=== PATIENT | female | born 1960 | race Caucasian/White ===

== ENCOUNTER 2016-12-04 16:06 | Observation (INO) | payer OTHER ==
[~2016-12-04] VITALS: Ht 160 cm; Wt 93.8 kg
[2016-12-04 16:22] VITALS: BP 155/91; PULSE 91; RESP 18; O2SAT 98
[2016-12-04 17:35] LABS: BASOPHILS % (AUTO) 0.3 % (0-3); EOSINOPHILS % (AUTO) 2.3 % (0-5); MONOCYTES % (AUTO) 5.8 % (4-12); Mean Corpuscular Hemoglobin 27.5 pg (27.0-35.0); Mean Corpuscular Volume 83.2 fL (81-100); NEUTROPHILS % (AUTO) 53.8 % (40-74); Platelet Count 295 bil/L (150-400)
--- NOTE | 2016-12-04 17:38 | ED.REPORT ---
HPI-General Illness Date of Service Dec 04, 2016 ED Provider: Nehemiah Parker MD Pt is a 56 year old female with a history of HTN and a family history of cardiac disease who presents to the ED complaining of intermittent SOB onset today. She reports that she experienced sharp, non-radiating pain under her shoulder blade on the left side yesterday night associated with this. Pt rates her shoulder blade pain as a 10/10, stating that it lasted approximately 2 minutes. No notable alleviating or exacerbating factors. She denies chest pressure, current SOB, abdominal pain, focal weakness, hematuria, hematochezia, vision change, fever, chills, rash, bruising, diarrhea, constipation, and extremity pain. Nursing Notes Stated Complaint: SOB, UPPER BACK PAIN Chief Complaint: General Complaint Nursing Notes Reviewed: Yes Allergies: Coded Allergies: No Known Allergies (Verified , 12/04/16) Scheduled Bupropion ER (Bupropion ER) 300 Mg Tab.er.24h 300 MG PO DAILY Bupropion ER (Bupropion ER) 150 Mg Tablet.er 150 MG PO DAILY Escitalopram Oxalate (Escitalopram Oxalate) 10 Mg Tablet 10 MG PO DAILY Hydrochlorothiazide (Hydrochlorothiazide) 25 Mg Tablet 25 MG PO DAILY Rabeprazole DR (Aciphex) 20 Mg Tablet 20 MG PO DAILY Scheduled PRN Ibuprofen (Ibuprofen) 400 Mg Tablet 400 MG PO QID PRN PRN For Pain diphenhydrAMINE HCl (Benadryl) 25 Mg Capsule 12.5 MG PO Q4 PRN PRN For Itching General Time Seen by MD: 16:54 Chief Complaint Other (Shortness of breath) Hx Obtained From: Patient Arrived By: Walk-in Sudden in Onset?: No Onset Occurred: 5 - 8 hours ago Symptom Duration: Since onset Severity: Current: No pain currently Severity: Maximum: No pain Recent Healthcare: No recent doctor visit, No recent hospitalization Similar Sx Previous: No Past Medical History Past Medical History Uterine fibroid, hypermonorrhea, with secondary anemia s/p surgery (2004) Pinched nerve Reports: Hypertension, Denies: Diabetes mellitus Past Surgical History Total abdominal hysterectomy Bilateral salpingo-oophorectomy Reports: (2x) Family History Cardiac disease Mother - of cancer Sister - of stroke Father - from coronary artery disease and complications from triple bypass Reports: CAD < 40 years old, Stroke Smoking History Unknown if Ever Smoker Social History Alcohol Use: "Social" Drug Use: THC Other Social History: Good social support, Ambulatory Status Independent Review of Systems Full Review of Systems Constitutional: Denies: Chills, Fever Eyes: Denies: Blurred bilateral, Visual loss bilateral Respiratory: Reports: Shortness of breath Cardiovascular: Denies: Chest pain GI: Denies: Constipation, Diarrhea, Hematochezia Female: Denies: Hematuria Musculoskeletal: Reports: Back pain, Denies: Extremity pain Hematologic: Denies Bruising Skin: Denies Rash Neurologic: Denies: Focal weakness Complete sys rev & neg: except as marked. Physical Exam Nursing note and vitals reviewed. Constitutional: Well-developed, well-nourished. Not diaphoretic. Head: Normocephalic and atraumatic. Mouth/Throat: Oropharynx is clear and moist. No oropharyngeal exudate. Eyes: EOM are normal. Pupils are equal, round, and reactive to light. Neck: Supple, no tracheal deviation. Cardiovascular: Normal rate, regular rhythm. Equal and intact distal pulses throughout. Pulmonary/Chest: Effort normal and breath sounds normal. No respiratory distress. Abdominal: Soft. No distension. There is no tenderness, rebound, or guarding. Bowel sounds present. Musculoskeletal: Range of motion grossly intact, moving all extremities. No edema or tenderness appreciated. Neurological: AOx3. Grossly nonfocal exam. Strength and sensation intact and equal to bilateral upper and lower extremities. Skin: Warm and dry, no rashes or pallor appreciated. Psychiatric: Appropriate mood and affect. Behavior appears normal. Vital Signs Vital Signs Date Time Temp Pulse Resp B/P Pulse Ox O2 Delivery O2 Flow Rate FiO2 12/04/16 21:01 80 20 151/86 98 Room Air 12/04/16 16:22 36.9 91 18 155/91 98 Room Air Initial VS: Reviewed Interpretation & Diagnostics Lab Results Interpretation Result Diagram: 12/04/16 1705 12/04/16 1705 Test 12/04/16 17:05 White Blood Count 10.7th/mm3 (3.8-10.1) Red Blood Count 4.94mil/mm3 (3.90-5.20) Hemoglobin 13.6g/dL (12.0-15.6) Hematocrit 41.1% (35.0-46.0) Mean Corpuscular Volume 83.2fL (81-100) Mean Corpuscular Hemoglobin 27.5pg (27.0-35.0) Mean Corpuscular Hemoglobin Concent 33.1% (32.0-37.0) Red Cell Distribution Width 13.7% (12.3-15.4) Platelet Count 295bil/L (150-400) Neutrophils (%) (Auto) 53.8% (40-74) Lymphocytes (%) (Auto) 37.6% (14-46) Monocytes (%) (Auto) 5.8% (4-12) Eosinophils (%) (Auto) 2.3% (0-5) Basophils (%) (Auto) 0.3% (0-3) D-Dimer < 0.50mg/L FEU (<0.50) Sodium Level 134mEq/L (134-144) Potassium Level 3.4mEq/L (3.5-5.2) Chloride Level 94mEq/L (97-108) Carbon Dioxide Level 28mmol/L (18-29) Blood Urea Nitrogen 11mg/dL (6-24) Creatinine 0.66mg/dL (0.57-1.00) Estimat Glomerular Filtration Rate 134mL/min (>59) Glucose Level 139mg/dL (60-99) Calcium Level 8.8mg/dL (8.5-10.1) Magnesium Level 1.9mg/dL (1.6-2.6) Total Bilirubin 0.3mg/dL (0.0-1.2) Aspartate Amino Transf (AST/SGOT) 20U/L (0-50) Alanine Aminotransferase (ALT/SGPT) 19U/L (0-32) Alkaline Phosphatase 101U/L (25-150) Troponin T 0.010ug/L (0.0-0.011) Total Protein 7.0g/dL (6.4-8.4) Albumin 4.1g/dL (3.4-5.0) Lab Results Interpretation: CMP - grossly WNL Potassium - 3.4 Glucose - 139 Troponin - negative WBC - 10.7 No left shift ECG Interpretation ECG Interpretation: Sinus rhythm with a rate of 82 Time: 17:41 Interpreted by: ED physician X-Ray Chest Interpretation Chest Xray Interpretation: IMPRESSION: No acute cardiopulmonary disease. Dictated by: Bebo Crabtree M.D. on 12/04/2016 at 18:02 View: Portable, 1 view Interpretation / Wet Read by: Interpret - Radiologist Re-Eval/Medical Decision Med Decision/Clinical Course In summary, 56-year-old female with a history of hypertension and a strong family history of early cardiac disease presenting to the ED for evaluation of left-sided scapular/chest pain as well as dyspnea today. Differential includes musculoskeletal pain, ACS, pneumonia, PE, etc. She has somewhat of a concerning story and plenty of risk factors for ACS including hypertension, obesity, and a strong family history of early cardiac disease; I'm concerned that she may have an atypical presentation of ACS given her sex and age. She is not having any pleuritic symptoms, O2 sats within normal limits, no tachycardia; low risk by Well's. No evidence of pneumonia on chest x-ray. Given the above, as well as the patient's HEART score, feel that admission for stress test is reasonable at this time. Patient agreeable to the plan as stated, no further questions. Source of Hx: Old records Time of Eval: 21:20 Re-Evaluation/Progress Note: Discussed risk of cardiac disease at her age and with her family history. Informed pt of reassuring chest x-ray and labs. Discussed need for stress test and what a stress test entails. Informed pt of need for admission for stress test and observation. Pt understands and agrees with plan for admission. All questions addressed. Consultation : Referral / Consult Name: Denia Yang DO Consulted With: Hospitalist Call Returned at: 22:30 Assistant Professor Of Psychology: Will see patient, Agrees with eval, Agrees with plan, Accepts admit Note: Discussed pt's case. Will admit for observation. Counseled Regarding: Diagnosis, Lab results, Need for admission Discharge & Departure Primary Impression: Chest pain Chest pain type: unspecified Qualified Code: R07.9 - Chest pain, unspecified Additional Impression: Dyspnea Dyspnea type: unspecified Qualified Code: R06.00 - Dyspnea, unspecified Disposition: ADMITTED TO HOSPITAL Discharge Condition All VS Reviewed: Yes Condition: Stable Referrals: Keesha Romo MD Scribe Attestation Portions of this note were transcribed by Carol Francis. I, Dr. Parker personally performed the history, physical exam and medical decision-making; I reviewed and confirmed the accuracy of the information in the transcribed note. Signed by: Kristal Rodriguez, 12/04/16. copies to: Keesha Romo MD, William B MD Dec 04, 2016 17:38 Carol Raygoza Dec 04, 2016 17:55
[2016-12-04 17:51] LABS: TROPONIN T 0.01 ug/L (0.0-0.011)
[2016-12-04 18:02] LABS: Magnesium 1.9 mg/dL (1.6-2.6)
--- NOTE | 2016-12-04 18:04 | DRSVH ---
PROCEDURE: X-RAY CHEST ONE VIEW, PORTABLE ([id number]) INDICATIONS: 56 year-old female with shortness of breath. TECHNIQUE: One view of the chest was acquired. COMPARISON: None. FINDINGS: Surgical changes and devices: None. Lungs and pleura: No pleural effusions or pneumothorax. Lungs are clear. Mediastinum: Mediastinal contours appear normal. Heart size is normal. Bones and chest wall: No suspicious bony lesions. Overlying soft tissues appear unremarkable. IMPRESSION: No acute cardiopulmonary disease. Dictated by: Bebo Crabtree M.D. on 12/04/2016 at 18:02 Approved by: Bebo Crabtree M.D. on 12/04/2016 at 18:02
[2016-12-04 21:01] VITALS: BP 151/86; PULSE 80; RESP 20; O2SAT 98
[2016-12-04 22:23] VITALS: BP 147/71; PULSE 82; RESP 19; O2SAT 98
[2016-12-04] MEDS ORDERED: Alum-Mag Hydrox-Simeth 30 mL Suspension PO PRN (23:10)
[2016-12-04] MEDS ORDERED: Polyethylene Glycol (PEG) 17 Gm Powder PO PRN (23:10)
[2016-12-04] MEDS ORDERED: Ondansetron 2 mg/mL 2 mL Inj IVPUSH PRN (23:10)
[2016-12-04 23:22] VITALS: BP 149/83; PULSE 79; RESP 18; O2SAT 94
--- NOTE | 2016-12-04 23:49 | PCM.HPMED ---
Subjective Date of Service Dec 04, 2016 Primary Provider: Admitting Physician: Denia Yang DO Primary Care Physician: Jorge Attending Physician: Denia Yang DO Chief Complaint: Shortness of Breath, Chest Pain History of Present Illness: Patient is a 56 y/o female with PMHx of HTN and a strong family history of heart disease who presents after intermittent episodes of Shortness of Breath that last 5 minutes at a time. Patient reports to have been watching television at around 11:00 this morning and experienced shortness of breath and palpitations. Patient reports that she had another episode an hour later with SOB and palpitations, again lasting roughly five minutes. The previous night, patient had sudden sharp L scapular pain that awoke her from sleep. Pain lasted about two minutes and did not radiate. She did not take anything to relieve the pain. Pain was a 10/10. Associated symptoms include headache and nausea. Denies ABD pain, vomiting, diarrhea, fever/chills, or urinary symptoms. Patient does report a dry cough that has been present for about two weeks, but she denies any recent sick contacts. Patient denies any recent travel, TB exposure, or recent changes to medications. She has been having episodes of hot flashes for the past month that occur a couple times a week. Her family's cardiac history includes an IA in her mother at age 54, and her sister who from a CVA. In the ED, patient was given ASA and Tylenol. Review of Systems: ROS reviewed and otherwise negative unless noted above. 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 Head: normocephalic and atraumatic Eyes: pupils equal round and reactive to light, no scleral icterus Heart: regular rate and rhythm, no murmur, rubs, or gallops, trace peripheral edema bilaterally Lungs: clear to auscultation, no wheeze, rales, or rhonchi, no chest wall tenderness ABD: soft, nontender, bowel sounds present throughout Musculoskeletal: moves all four extremities appropriately. 5/5 clubhouse attendant strength, 5 /5 strength in bilateral UE. moderate tenderness to palpation to posterior left calf, just distal to knee. Skin: warm, dry, no rash Neuro: CN II-XII intact. no focal deficits. Psych: appropriate mood and affect. Lab and Diagnostics Labs Item Value Date Time Red Blood Count 4.94 mil/mm3 12/04/161704 Mean Corpuscular Volume 83.2 fL 12/04/161704 Mean Corpuscular Hemoglobin 27.5 pg 12/04/161704 Mean Corpuscular Hemoglobin Concent 33.1 % 12/04/161704 Red Cell Distribution Width 13.7 % 12/04/161704 Neutrophils (%) (Auto) 53.8 % 12/04/161704 Lymphocytes (%) (Auto) 37.6 % 12/04/161704 Eosinophils (%) (Auto) 2.3 % 12/04/161704 Monocytes (%) (Auto) 5.8 % 12/04/161704 Basophils (%) (Auto) 0.3 % 12/04/161704 Estimat Glomerular Filtration Rate 134 mL/min 12/04/161704 Calcium Level 8.8 mg/dL 12/04/161704 Magnesium Level 1.9 mg/dL 12/04/161704 Total Bilirubin 0.3 mg/dL 12/04/161704 Aspartate Amino Transf (AST/SGOT) 20 U/L 12/04/161704 Alanine Aminotransferase (ALT/SGPT) 19 U/L 12/04/161704 Alkaline Phosphatase 101 U/L 12/04/161704 Troponin T 0.010 ug/L 12/04/161704 Total Protein 7.0 g/dL 12/04/161704 Albumin 4.1 g/dL 12/04/161704 D-Dimer < 0.50 mg/L FEU 12/04/161704 Result Diagram: 12/04/16170417 1705 X-Rays, CTs and MRIs PROCEDURE: X-RAY CHEST ONE VIEW, PORTABLE IMPRESSION: No acute cardiopulmonary disease. Dictated by: Bebo Crabtree M.D. on 12/04/2016 at 18:02 12-lead ECG Sinus HR 82 Assessment & Plan Patient is a 56 y/o female with PMHx of HTN and a strong family history of heart disease who presents after intermittent episodes of Shortness of Breath that last 5 minutes at a time. - Acute Unstable Angina, POA, Stable, Resolved - patient with CP that woke her from sleep, intermittent episodes of SOB at rest with palpitations and a strong family history of CAD - Although patient ASHLY Risk for UA/NSTEMI is 1, the patient's strong family history and mother with an ACS event at 54 places this patient at an increased risk for an coronary event and requires further diagnostic evaluation. - Consult cardiology in AM, plan for stress test in AM - NPO after midnight - Morphine PRN - Nitro PRN - ASA 235mg given in ED - History of Hypertension, Chronic, Stable - Continue home dose of HCTZ Patient is FULL CODE Due to the nature of the chest pain and need for further diagnostic evaluation, patient is admitted under the observation status and estimated time of discharge is less than two midnights. Pain Evaluation: Adequate Pain Control GI Prophylaxis: H2 bean VTE Prophylaxis Indicated: Meets Criteria for Anticoag Therapy VTE Prophylaxis: Sub-Q Heparin (Unfractionated) Resuscitation Status: CPR: Attempt Resuscitation Attending Statement The patient was seen and examined together with house staff on 12/04/2016 and I agree with the history, exam and plan as outlined in the note above. Dewayne Rand DO Dec 04, 2016 23:49 Denia Yang DO Dec 05, 2016 02:41
[2016-12-05] MEDS ORDERED: IBUP400T22 PO
[2016-12-05] MEDS ORDERED: HYDR25TA4 PO
[2016-12-05] MEDS ORDERED: RABE20TA9 PO
[2016-12-05] MEDS ORDERED: BUPR150T12 PO
[2016-12-05] MEDS ORDERED: BUPR300T52 PO
[2016-12-05] MEDS ORDERED: ESCI10TA52 PO
[2016-12-05] MEDS ORDERED: DIPH25CA6 PO
[2016-12-05 00:03] VITALS: BP 149/83; PULSE 79; RESP 18; O2SAT 94
[2016-12-05] MEDS ORDERED: diphenhydrAMINE 25 mg Capsule PO PRN (00:25)
[2016-12-05] MEDS: Heparin 5,000 Unit/mL Inj SUBQ SCH ×3 (00:36→16:37)
--- NOTE | 2016-12-05 02:46 | NUR ---
admit note Pt is admitted to room 3007 from ED around 23:10 for chest pain and episode of SOB today. Pt is A&Ox4. denies chest pain or SOB. Reports tolerable 2/10 headache after getting tylenol in ED. independent in the room; gait steady. Tele SR in the 80s per shelter monitor. tolerated heart healthy diet w/o N/V. NPO since midnight for stress test today. Pt is oriented to room and plan of care; she verbalized understanding. Addendum: 12/05/16 at 0636 by VETO ALDANA RN slept intermittently after getting Temazepam this shift. No c/o chest pain or discomfort. NPO since midnight
[2016-12-05 05:15] VITALS: BP 129/84; PULSE 73; RESP 18; O2SAT 96
[2016-12-05 05:22] VITALS: PULSE 89
[2016-12-05 06:24] LABS: Mean Corpuscular Volume 83.9 fL (81-100)
[2016-12-05] MEDS ORDERED: Pantoprazole 40 mg ER24 Tablet PO SCH (06:30)
[2016-12-05 08:00] VITALS: PULSE 80
[2016-12-05] MEDS ORDERED: 0.9% Sodium Chloride 250 ML ONE (08:11)
[2016-12-05] MEDS ORDERED: buPROPion XL 150 mg ER24 Tablet PO SCH (08:30)
[2016-12-05] MEDS ORDERED: buPROPion XL 300 mg ER24 Tablet PO SCH (08:30)
[2016-12-05] MEDS ORDERED: Famotidine Inj 20 MG in IV Premix 1 EACH IV SCH (08:30)
[2016-12-05 09:41] VITALS: BP 145/86; PULSE 72; RESP 18; O2SAT 96
--- NOTE | 2016-12-05 13:26 | NUR ---
Pt Off Floor 1330 Pt taken to Nuc med in w/c with chart. Pt A&Ox4, medicated with Tylenol for shoulder pain, pt stated she moved self in bed at home and 'strained' shoulder. VS stable. Addendum: 12/05/16 at 1653 by SHAHIDA CACERES RN 1555 Pt back on floor. Tele placed back on, confirmed placement with traffic monitor specialist. BP 175/105, Dr. Hi Hall notified.
--- NOTE | 2016-12-05 15:24 | NUR ---
Social Work: Multidisciplinary Rounds / Initial Assessment Data: See initial assessment. Patient is a 56 year old female who was admitted on 12/04/16 for chest pain and dyspnea per H&P. Patient's insurance is [employer] Plan and no PCP is listed at this time. EMR reviewed. DAVID met with patient to discuss discharge planning. DAVID role explained. Patient reports that she lives with her spouse, sister, and two children in [place]. Patient considers her family to be her main source of support. Patient denies having a DPOA or AD at this time. SW has provided patient with AD resources per her request. Patient confirms that she drives via [place]. Patient denies a hx of home health services or SNF. Patient denies having retirement care insurance or VA benefits. Upon discharge, patient states that she will be transported home by her spouse. SW provided patient with a discharge planning checklist booklet and encouraged to call with any questions or concerns. Phone number provided. Patient was discussed in morning rounds. No concerns were noted by MD or staff. DAVID will continue to follow. Assessment: Patient will likely discharge home when medically stable. Plan: Patient will discharge home when medically stable. Transportation will be provided by spouse. SW will continue to follow for needs. STEVIE Bernard Addendum: 12/05/16 at 1532 by CAIN STEEN Amended: Links added.
[2016-12-05 15:57] VITALS: BP 175/105; PULSE 88; RESP 18; O2SAT 97
[2016-12-05] MEDS ORDERED: LIP40 PO (17:36)
--- NOTE | 2016-12-05 17:36 | PCM.DIMED ---
Discharge Instructions Date of Service Dec 05, 2016 Dates of Hospitalization Dec 04, 2016 at 22:06 Discharge Diagnosis Discharge Diagnosis 1. Chest pain, resolved. Normal stress test. 2. Hypertension, stable. 3. Hyperlipidemia, new. Diet Discharge Diet: Low fat, Low Sodium Activity Discharge Activity: No restrictions Call your provider Call your provider for: Shortness of breath, Chest pain Patient Instructions Patient Instructions your new doctor within the next 2 weeks. Follow-up with PCP in: 2 weeks Hi Hall MD Dec 05, 2016 17:35
--- NOTE | 2016-12-05 17:37 | DRSVH ---
PROCEDURE: 1 DAY PHARMACOLOGICAL STRESS TEST INDICATIONS: CHEST PAIN. COMPARISON: None. FINDINGS: Radiopharmaceutical: Stress dose 32 mCi of technetium 99 tetrofosmin Rest dose 12 mCi of technetium 99m tetrofosmin Patient presentation: 56-year-old woman with palpitations and dyspnea. She has strong family history of heart disease and mother. Pharmacologic stress test: Following informed consent Lexiscan was infused per protocol. Patient deve loped mild dyspnea. Otherwise no significant changes. No ST changes and no ectopy. Raw data: Normal myocardial tracer uptake. Lung heart ratio is normal. Myocardial perfusion imaging: No ischemia or prior infarct. Quantitative gated SPECT: At peak stress ejection fraction is 89%. Rest ejection fraction is 80%. No focal wall motion abnormality seen. IMPRESSION: Low risk pharmacologic stress test with myocardial perfusion imaging. Normal wall motion and left ventricular systolic function. No ischemia or prior infarct. No prior study available for comparison. Dictated by: Barbra Ray M.D. on 12/05/2016 at 17:32 Approved by: Barbra Ray M.D. on 12/05/2016 at 17:35
--- NOTE | 2016-12-05 17:53 | DRSVH ---
PROCEDURE: US VEINOUS LEG DUPLEX UNILATERAL, LEFT INDICATIONS: leg swelling TECHNIQUE: Real-time imaging, as well as color and pulse Doppler interrogation, were performed of the lower extr emity deep veins from the inguinal ligament to the popliteal fossa. COMPARISON: None. FINDINGS: The deep veins are normally compressible, and free of intraluminal thrombus. Color and pu lse Doppler demonstrate normal phasic intraluminal flow. There is normal augmentation response to di stal compression maneuver. IMPRESSION: No deep venous thrombosis identified within the left lower extremity. Dictated by: Thai FAJARDO Interpreted: Fouzia Orantes MD on 12/05/2016 at 11:53 Approved by: Remi Saenz M.D. on 12/05/2016 at 17:51
--- NOTE | 2016-12-05 17:55 | PCM.DC.MED ---
Discharge Summary Date of Service Dec 05, 2016 Dates of Hospitalization Date of Hospital Admission Dec 04, 2016 at 22:06 Date of Discharge: Dec 05, 2016 Providers: Admitting Physician: Denia Yang DO Primary Care Physician: Jorge Attending Physician: Hi Rehman MD Diagnosis at Time of Discharge Diagnosis at Time of Discharge 1. Chest pain, resolved. Normal stress test. 2. Hypertension, stable. 3. Hyperlipidemia, new. Consultations None Procedures XRay, CTs & MRIs PROCEDURE: X-RAY CHEST ONE VIEW, PORTABLE IMPRESSION: No acute cardiopulmonary disease. Dictated by: Bebo Crabtree M.D. on 12/04/2016 at 18:02 ECG 12 Lead Sinus HR 82 Invasive Procedures None Other Diagnostics Stress test with MIBI was unremarkable. Low risk. Duplex ultrasound of chronically swollen left leg was negative for DVT. Brief History Patient is a 56 y/o female with PMHx of HTN and a strong family history of heart disease who presents after intermittent episodes of Shortness of Breath that last 5 minutes at a time. Patient reports to have been watching television at around 11:00 this morning and experienced shortness of breath and palpitations. Patient reports that she had another episode an hour later with SOB and palpitations, again lasting roughly five minutes. The previous night, patient had sudden sharp L scapular pain that awoke her from sleep. Pain lasted about two minutes and did not radiate. She did not take anything to relieve the pain. Pain was a 10/10. Associated symptoms include headache and nausea. Denies ABD pain, vomiting, diarrhea, fever/chills, or urinary symptoms. Patient does report a dry cough that has been present for about two weeks, but she denies any recent sick contacts. Patient denies any recent travel, TB exposure, or recent changes to medications. She has been having episodes of hot flashes for the past month that occur a couple times a week. Her family's cardiac history includes an IL in her mother at age 54, and her sister who from a CVA. In the ED, patient was given ASA and Tylenol. Hospital Course Patient is a 56 y/o female with PMHx of HTN and a strong family history of heart disease who presents after intermittent episodes of Shortness of Breath that last 5 minutes at a time. - Acute Unstable Angina, POA, Stable, Resolved - patient with CP that woke her from sleep, intermittent episodes of SOB at rest with palpitations and a strong family history of CAD - Although patient ASHLY Risk for UA/NSTEMI is 1, the patient's strong family history and mother with an ACS event at 54 places this patient at an increased risk for an coronary event and requires further diagnostic evaluation. - Consult cardiology in AM, plan for stress test in AM - NPO after midnight - Morphine PRN - Nitro PRN - ASA 235mg given in ED - History of Hypertension, Chronic, Stable - Continue home dose of HCTZ Patient is FULL CODE Hospital course. This patient was admitted for atypical chest pain with strong family history of CAD as well as hypertension. She ruled out for IL with negative troponins 3 and underwent a stress MIBI which was read as low probability. A duplex of the left leg which is chronically swollen was negative for DVT. Her lipid profile did indicate a mixed hyper triglyceridemia and hypercholesterolemia. She was open to starting on medications for this. She does take chronic antihypertensive medications. She was felt to be stable for discharge was agreeable to close follow-up with her new primary care doctor, Dr. arreola Exam Vital Signs (Last) Date Time Temp Pulse Resp B/P Pulse Ox O2 Delivery O2 Flow Rate FiO2 12/05/16 15:57 37.2 88 18 175/105 97 Room Air Exam The patient was seen and examined on the day of discharge. She was felt to be medically stable for discharge. Test 12/04/16 17:05 12/05/16 05:20 12/05/16 16:08 Neutrophils (%) (Auto) 53.8% (40-74) Lymphocytes (%) (Auto) 37.6% (14-46) Monocytes (%) (Auto) 5.8% (4-12) Eosinophils (%) (Auto) 2.3% (0-5) Basophils (%) (Auto) 0.3% (0-3) D-Dimer < 0.50mg/L FEU (<0.50) Magnesium Level 1.9mg/dL (1.6-2.6) White Blood Count 8.8th/mm3 (3.8-10.1) Red Blood Count 4.71mil/mm3 (3.90-5.20) Hemoglobin 13.2g/dL (12.0-15.6) Hematocrit 39.5% (35.0-46.0) Mean Corpuscular Volume 83.9fL (81-100) Mean Corpuscular Hemoglobin 28.0pg (27.0-35.0) Mean Corpuscular Hemoglobin Concent 33.4% (32.0-37.0) Red Cell Distribution Width 13.7% (12.3-15.4) Platelet Count 266bil/L (150-400) Sodium Level 142mEq/L (134-144) Potassium Level 3.8mEq/L (3.5-5.2) Chloride Level 100mEq/L (97-108) Carbon Dioxide Level 26mmol/L (18-29) Blood Urea Nitrogen 11mg/dL (6-24) Creatinine 0.67mg/dL (0.57-1.00) Estimat Glomerular Filtration Rate 131mL/min (>59) Glucose Level 102mg/dL (60-99) Calcium Level 8.8mg/dL (8.5-10.1) Total Bilirubin 0.3mg/dL (0.0-1.2) Aspartate Amino Transf (AST/SGOT) 19U/L (0-50) Alanine Aminotransferase (ALT/SGPT) 19U/L (0-32) Alkaline Phosphatase 96U/L (25-150) Total Protein 6.0g/dL (6.4-8.4) Albumin 3.7g/dL (3.4-5.0) Triglycerides Level 373mg/dL (0-149) Cholesterol Level 249mg/dL (100-199) LDL Cholesterol, Calculated 132.400mg/dL (0-99) VLDL Cholesterol 74.600mg/dL HDL Cholesterol 42mg/dL (>39) Cholesterol/HDL Ratio 5.93 (0.0-4.4) Thyroid Stimulating Hormone (TSH) 1.560uIU/mL (0.450-4.500) Troponin T < 0.010ug/L (0.0-0.011) Discharge Medications Discharge Medications Atorvastatin (Lipitor) 40 Mg Tablet 40 MG PO DAILY Prescribed by: HI REHMAN MD Bupropion ER (Bupropion ER) 300 Mg Tab.er.24h 300 MG PO DAILY (Reported) Bupropion ER (Bupropion ER) 150 Mg Tablet.er 150 MG PO DAILY (Reported) Escitalopram Oxalate (Escitalopram Oxalate) 10 Mg Tablet 10 MG PO DAILY ( Reported) Hydrochlorothiazide (Hydrochlorothiazide) 25 Mg Tablet 25 MG PO DAILY (Reported ) Rabeprazole DR (Aciphex) 20 Mg Tablet 20 MG PO DAILY (Reported) As needed Ibuprofen (Ibuprofen) 400 Mg Tablet 400 MG PO QID PRN PRN For Pain (Reported) diphenhydrAMINE HCl (Benadryl) 25 Mg Capsule 12.5 MG PO Q4 PRN PRN For Itching ( Reported) Followup Plan Disposition: Home Discharge Diet: Low fat, Low Sodium Discharge Activity: No restrictions Patient Instructions your new doctor within the next 2 weeks. Follow-up Provider: Anny Arreola Follow-up with PCP in: 2 weeks Hi Rehman MD Dec 05, 2016 17:55
--- NOTE | 2016-12-05 17:56 | NUR ---
Social Work: Screening / Discharge EMR reviewed. Patient has been deemed medically stable for discharge today per MD. Patient will discharge home today. Transportation will be provided by spouse. Patient will have no needs at time of discharge. STEVIE Bernard
--- NOTE | 2016-12-05 18:13 | NUR ---
Discharge Note Pt d/c home with via motor vehicle at 1810. Pt verbalized understanding of discharge teaching, new prescription, and follow up instructions. IV d/c'd. Left with all of belongings.
== END 2016-12-05 18:14 | disposition home or self-care (01) ==
LOC: SED 16:06 → MPC 22:06
PROVIDERS: ADMIT Internal Medicine; ATTEND Hospitalist
DX: R07.9 Chest pain, unspecified (principal); I10 Essential (primary) hypertension; E78.5 Hyperlipidemia, unspecified; I20.0 Unstable angina; G58.9 Mononeuropathy, unspecified
CPT/HCPCS: 36415; 71010; 78452; 80053; 80061; 83036; 83735; 84443; 84484; 85025; 85027; 85378; 93005; 93017; 93970; 96374; 99285; A9502; G0378; J1644; J2785; J3490; J7050